=== PATIENT | female | born 1955 | race Caucasian/White ===

== ENCOUNTER 2022-12-04 15:59 | Emergency (ER) | payer OTHER ==
[~2022-12-04] VITALS: Ht 157.5 cm; Wt 64.0 kg
[2022-12-04 16:14] VITALS: BP 111/62
[2022-12-04] MEDS ORDERED: ONDANSETRON 4MG ODT PO ONE (19:00)
[2022-12-04] MEDS ORDERED: MECLIZINE 25MG TABLET PO ONE (19:00)
[2022-12-04 22:30] LABS: BASOPHILS % 1.4 % (0.0-2.0); EOSINOPHILS % 1.6 % (0.0-5.0); HEMATOCRIT. 36.4 % (36.0-48.0); LYMPHOCYTES % 36.3 % (20.0-50.0); MEAN CORPUSCULAR HEMOGLOBIN 29.8 pg (28.0-32.0); MEAN CORPUSCULAR VOLUME 90.1 fL (81.0-99.0); MEAN PLATELET VOLUME 8.1 fl (7.4-10.4); MONOCYTES % 7.2 % (2.0-8.0); NEUTROPHILS % 53.5 % (40.0-76.0); PLATELET 406 x1000/uL (130-400); RED BLOOD CELL COUNT 4.04 mill/uL (4.2-5.4); RED CELL DISTRIBUTION WIDTH 15.6 % (11.6-14.6)
[2022-12-04 22:32] LABS: CHLORIDE 101 mEq/L (98-107)
[2022-12-04] MEDS ORDERED: MECL-159 MT (23:11)
== END 2022-12-04 23:37 | disposition home or self-care (01) ==
LOC: ER 15:59
DX: R42 Dizziness and giddiness (principal); R53.1 Weakness; R26.2 Difficulty in walking, not elsewhere classified; R94.31 Abnormal electrocardiogram [ECG] [EKG]; G43.909 Migraine, unspecified, not intractable, without status migrainosus; I51.7 Cardiomegaly; Z88.0 Allergy status to penicillin; Z59.00 Homelessness unspecified
CPT/HCPCS: 36415; 70450; 71045; 80053; 84484; 85025; 93005; 99285; J8597; Q0162